=== PATIENT | female | born 1975 | race Caucasian/White ===

== ENCOUNTER 2018-03-20 09:32 | Outpatient (CLI) | payer OTHER | END 2018-03-20 09:52 | disposition home or self-care (01) | LOC: LAB 09:32 | DX: L93.2 Other local lupus erythematosus (principal); E21.3 Hyperparathyroidism, unspecified; A64 Unspecified sexually transmitted disease; E78.2 Mixed hyperlipidemia; I10 Essential (primary) hypertension; E03.8 Other specified hypothyroidism; E78.1 Pure hyperglyceridemia; E11.9 Type 2 diabetes mellitus without complications; N39.0 Urinary tract infection, site not specified; C90.00 Multiple myeloma not having achieved remission; N04.9 Nephrotic syndrome with unspecified morphologic changes ==

== ENCOUNTER 2018-03-20 10:30 | Outpatient (CLI) | payer OTHER | END 2018-03-20 10:33 | disposition home or self-care (01) | LOC: SONOGRAMA 10:30 | DX: N04.9 Nephrotic syndrome with unspecified morphologic changes (principal) ==

== ENCOUNTER 2018-03-24 09:34 | Outpatient (CLI) | payer OTHER | END 2018-03-24 09:57 | disposition home or self-care (01) | LOC: LAB 09:34 | DX: L93.2 Other local lupus erythematosus (principal); E21.3 Hyperparathyroidism, unspecified; A64 Unspecified sexually transmitted disease; E78.1 Pure hyperglyceridemia; I10 Essential (primary) hypertension; E03.8 Other specified hypothyroidism; N39.0 Urinary tract infection, site not specified; E11.9 Type 2 diabetes mellitus without complications; C90.00 Multiple myeloma not having achieved remission; N04.9 Nephrotic syndrome with unspecified morphologic changes ==

== ENCOUNTER → 2018-06-12 | Outpatient (CLI) | payer OTHER | END | disposition home or self-care (01) | LOC: LAB 07:42 | DX: I10 Essential (primary) hypertension (principal); E78.89 Other lipoprotein metabolism disorders; A63.8 Other specified predominantly sexually transmitted diseases; C90.00 Multiple myeloma not having achieved remission ==

== ENCOUNTER → 2018-06-12 | Outpatient (CLI) | payer OTHER | END | disposition home or self-care (01) | LOC: NUCLEAR 08:37 | DX: C90.00 Multiple myeloma not having achieved remission (principal) | CPT/HCPCS: A9503; 78306 ==

== ENCOUNTER 2018-12-05 18:52 | Inpatient (IN) | payer OTHER ==
[~2018-12-05] VITALS: Ht 152.4 cm; Wt 93.0 kg
[2018-12-05] MEDS ORDERED: CELLCEPT500 MG (19:18)
[2018-12-05] MEDS ORDERED: DELTASONE20 MG (19:18)
[2018-12-05] MEDS ORDERED: IRBESARTAN-HCT1 EACH (19:19)
--- NOTE | 2018-12-05 19:22 | NUR ---
SE RECIBE PTE LA CUAL REFIERE PRESENTAR EVACUACIONES CON LUIS DESDE EL MIERCOLES EN LA NOCHE PTE LLEGA A ER POR REFERIDO MEDICO. PTE DESCRIBE LAS MISMAS JOSE DAVID COLOR NEGRAS.
--- NOTE | 2018-12-05 21:22 | NUR ---
EVALUA PTE. SE ORIENTA A PTE SOBRE TX MEDICO. PTE REFIERE COMPRENDER. SE EXTRAEN MUESTRAS DE LABORATORIO BAJO MEDIDAS ASEPTICAS. SE ADMINISTRAN MEDICAMENTOS JHOANA ORDEN MEDICA. PROCEDIMIENTOS LLEVADOS A CABO POR .
--- NOTE | 2018-12-06 07:44 | NUR ---
SE RECIBE PTE ALERTA Y ORIENTADA EN 3 ESFERAS. PTE CANALIZADA DEL TURNO ANTERIOR EN BRAZO DEUCE. SE WILLIAM MUESTRAS DE LUIS BAJO MEDIDAS ASEPTICAS Y SE ADMINISTRA MEDICAMENTO IV.SE ORIENTA A PTE SOBRE TRATAMIENTO EL CUAL REFIERE ENTENDER.
[2018-12-10] MEDS ORDERED: PROTONIX40 MG PO (09:05)
== END 2018-12-10 09:53 | disposition home or self-care (01) | DRG 377 ==
LOC: ER 18:52 → MEDI 12-06 10:20
PROVIDERS: ADMIT Internal Medicine Cardiovascular Disease
PROC: 30233N1 Transfusion of Nonautologous Red Blood Cells into Peripheral Vein, Percutaneous Approach (ICD-10-PCS; 2018-12-06)
PROC: 4A12X4Z Monitoring of Cardiac Electrical Activity, External Approach (ICD-10-PCS; 2018-12-06)
PROC: 0DJ08ZZ Inspection of Upper Intestinal Tract, Via Natural or Artificial Opening Endoscopic (ICD-10-PCS; principal; 2018-12-08)
PROC: 0DJD8ZZ Inspection of Lower Intestinal Tract, Via Natural or Artificial Opening Endoscopic (ICD-10-PCS; 2018-12-09)
DX: K92.1 Melena (principal); N00.8 Acute nephritic syndrome with other morphologic changes; D50.0 Iron deficiency anemia secondary to blood loss (chronic); K29.60 Other gastritis without bleeding; I10 Essential (primary) hypertension; R80.8 Other proteinuria; E66.8 Other obesity

== ENCOUNTER 2022-04-08 15:31 | Inpatient (IN) | payer OTHER ==
[~2022-04-08] VITALS: Ht 154.9 cm; Wt 99.8 kg
[~2022-04-08 15:31] MED LIST: CELLCEPT500 MG; DELTASONE20 MG; IRBESARTAN-HCT1 EACH; PROTONIX40 MG PO
[2022-04-08] MEDS ORDERED: METFORMIN HCL500 M3 (16:45)
[2022-04-08] MEDS ORDERED: GLIPIZIDE XL2.5 MG (16:45)
[2022-04-08] MEDS ORDERED: COZAAR25 MG (16:45)
[2022-04-08] MEDS ORDERED: LEVOTHYROXINE25 MCG (16:45)
--- NOTE | 2022-04-08 16:46 | NUR ---
PACIENTE ALERTA Y ORIENTADA POR NEELAM. REFIERE 4 ROSARIO CON SANGR[place]O RECTAL QUE EL KYA DE HOY AUMENTO.
--- NOTE | 2022-04-08 18:00 | NUR ---
PTE ALERTA Y ORIENTADA X3, SE LE WILLIAM MUESTRAS DE LAB. JHOANA ORDEN MEDICA BAJO MEDIDAS ASEPTICAS. SE CANALIZA EN MANO IZQUIERDA AREA SHAWN DE EDEMA Y DE ENROJECIMIENTO. SE EDUCA A PTE SOBRE TRATAMIENTO MEDICO.
--- NOTE | 2022-04-08 19:35 | NUR ---
PTE ES REEVALUADA POR ,SE ORIENTA APTE SOBRE ORDEN MEDICA.SE WILLIAM TUBOS PILOTOS PARA 3 UNIDADES DE PRBC,SE NOTIFICA A GUNJAN DE BANCO DE LUIS,SE REALIZA EKG Y SE NOTIFICA SOBRE CT,SE LLEVAN TUBOS LISTOS PARA LABORATORIO.
--- NOTE | 2022-04-08 23:00 | NUR ---
PACIENTE ALERTA Y ORIENTADA X3. EN MINERVA CON BARANDAS ELEVADAS Y INTERCOM ACCESIBLE. H/L PATENTE Y SHAWN DE EDEMA Y ERITEMA. PENDIENTE TRANSFUNDIR A PACIENTE CUANDO BUCK DISPONIBLE LA LUIS. MEDICO ORDENO 3 UNIDADES DE PRBC. SE MANTIENE BAJO OBSERVACION POR CAMBIOS SIGNIFICATIVOS.
[2022-04-10] MEDS ORDERED: GLIMEPIRIDE1 M1 (13:28)
[2022-04-10] MEDS ORDERED: ROSUVASTATIN CA10 MG (13:28)
== END 2022-04-14 18:57 | disposition home or self-care (01) | DRG 379 ==
LOC: ER 15:31 → MEDI 04-09 01:32 → MEDJ 04-09 02:04 → MEDI 04-09 09:38
PROVIDERS: ADMIT Internal Medicine; ATTEND Internal Medicine
PROC: 30233N1 Transfusion of Nonautologous Red Blood Cells into Peripheral Vein, Percutaneous Approach (ICD-10-PCS; principal; 2022-04-09)
DX: K92.1 Melena (principal); D64.9 Anemia, unspecified; E03.8 Other specified hypothyroidism; I10 Essential (primary) hypertension; Z20.822 Contact with and (suspected) exposure to COVID-19; E11.9 Type 2 diabetes mellitus without complications; Z79.4 Long term (current) use of insulin